=== PATIENT | male | born 1970 | race Caucasian/White ===

== ENCOUNTER 2019-01-15 14:20 | Emergency (ER) | payer BC, OTHER ==
[~2019-01-15] VITALS: Ht 167.6 cm; Wt 82.7 kg
[2019-01-15] MEDS ORDERED: PRAV40TA2 PO (14:40)
[2019-01-15] MEDS ORDERED: D3 U5000 PO (14:40)
[2019-01-15] MEDS ORDERED: LEVO50TA5 PO (14:40)
[2019-01-15] MEDS ORDERED: TRAZ-252 PO (14:40)
[2019-01-15] MEDS ORDERED: OMEP10CASR PO (14:40)
[2019-01-15] MEDS ORDERED: NORV5TAB PO (14:40)
[2019-01-15] MEDS ORDERED: BISO5TAB2 PO (14:40)
[2019-01-15 15:39] LABS: CPK CREATINE PHOSPHOKINASE 158 U/L (39-308); MB/CK RELATIVE INDEX 0.63 (< OR =4); TROPONIN I < 0.02 NG/ML (< 0.10)
[2019-01-15 16:20] VITALS: BP 138/72
[2019-01-15] MEDS ORDERED: 24Hr Holter Monitor XX (16:26)
--- NOTE | 2019-01-15 19:58 | ECGEPIP ---
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
== END 2019-01-15 16:39 | disposition home or self-care (01) ==
LOC: M ED 14:20
DX: R00.2 Palpitations (principal); I10 Essential (primary) hypertension; Z79.899 Other long term (current) drug therapy